=== PATIENT | female | born 1950 | race Caucasian/White ===

== ENCOUNTER → 2018-03-24 | Outpatient (CLI) | payer MEDICARE | END | disposition home or self-care (01) | LOC: RAH 11:11 | PROVIDERS: ATTEND Family Medicine | DX: M25.872 Other specified joint disorders, left ankle and foot (principal); M67.472 Ganglion, left ankle and foot; M79.89 Other specified soft tissue disorders | CPT/HCPCS: 76882 ==

== ENCOUNTER → 2019-02-15 | Outpatient (CLI) | payer MEDICARE | END | disposition home or self-care (01) | LOC: RAH 13:26 | PROVIDERS: ATTEND Family Medicine | DX: M51.35 Other intervertebral disc degeneration, thoracolumbar region (principal); I70.0 Atherosclerosis of aorta; M25.552 Pain in left hip; M25.551 Pain in right hip | CPT/HCPCS: 72100; 73522 ==

== ENCOUNTER → 2020-09-11 | Outpatient (CLI) | payer MEDICARE | END | disposition home or self-care (01) | LOC: RAH 09:46 | PROVIDERS: ATTEND Anesthesiology Pain Medicine | DX: M16.0 Bilateral primary osteoarthritis of hip (principal) | CPT/HCPCS: 73522 ==

== ENCOUNTER → 2020-10-23 | Outpatient (CLI) | payer MEDICARE | END | disposition home or self-care (01) | LOC: RAH 10:35 | PROVIDERS: ATTEND Family Medicine | DX: Q25.46 Tortuous aortic arch (principal); S22.42XA Multiple fractures of ribs, left side, initial encounter for closed fracture; M47.816 Spondylosis without myelopathy or radiculopathy, lumbar region; M51.35 Other intervertebral disc degeneration, thoracolumbar region; M51.37 Other intervertebral disc degeneration, lumbosacral region; K44.9 Diaphragmatic hernia without obstruction or gangrene; M85.88 Other specified disorders of bone density and structure, other site; X58.XXXA Exposure to other specified factors, initial encounter; Y93.89 Activity, other specified; Y92.89 Other specified places as the place of occurrence of the external cause; Y99.8 Other external cause status; Z96.612 Presence of left artificial shoulder joint; Z96.698 Presence of other orthopedic joint implants | CPT/HCPCS: 71046; 71100; 72100 ==

== ENCOUNTER 2021-05-11 15:00 | Observation (INO) | payer MEDICARE ==
[~2021-05-11] VITALS: Ht 152.4 cm; Wt 88.6 kg
[2021-05-11 10:38] LABS: APPEARANCE,URINE Clear (CLEAR); BILIRUBIN,URINE Negative (NEGATIVE); COLOR,URINE Yellow (YELLOW); GLUCOSE, URINE (UA) Negative (NEGATIVE); KETONES,URINE Negative (NEGATIVE); LEUKOCYTE ESTERASE ,URINE Negative (NEGATIVE); NITRATE,URINE Negative (NEGATIVE); OCCULT BLOOD,URINE Negative (NEGATIVE); PH,URINE 6.5 (5.0-8.0); PROTEIN,URINE Negative (NEGATIVE)
[2021-05-11 10:51] LABS: BASOPHILS % (AUTO) 0.5 % (0.0-5.0); EOSINOPHILS % (AUTO) 2.3 % (0.0-8.0); HEMATOCRIT 40.8 % (36-48); MEAN CORPUSCULAR HEMOGLOBIN 28.5 pg (27.0-33.0); MEAN CORPUSCULAR HGB CONC 33.1 g/dL (32.0-36.0); MEAN CORPUSCULAR VOLUME 86.3 fL (79-99); MONOCYTES % (AUTO) 9.2 % (3.0-13.0); NEUTROPHILS % (AUTO) 66.8 % (40.0-77.0); PLATELET COUNT (AUTO) 255 K/uL (130-400); RED BLOOD CELL COUNT(AUTO) 4.73 MIL/uL (4.00-5.50); RED CELL DISTRIBUTION WIDTH 14.1 % (11.0-15.5); WHITE BLOOD COUNT (AUTO) 6.4 K/uL (4.8-10.8)
[2021-05-11 10:59] LABS: CREATININE 0.7 mg/dL (0.5-1.5); POTASSIUM 4.4 mmol/L (3.5-5.1)
[2021-05-11 11:34] LABS: PROTHROMBIN TIME 10.9 SEC (9.6-11.6)
[2021-05-12 13:49] VITALS: BP 173/81
[2021-05-12] MEDS ORDERED: ROPI1TAB13 PO (14:43)
[2021-05-12] MEDS ORDERED: IRON1CAP30 PO (14:43)
[2021-05-12] MEDS ORDERED: CA C1TAB74 PO (14:43)
[2021-05-12] MEDS ORDERED: TRAM50TA4 PO (14:43)
[2021-05-12] MEDS ORDERED: PREG100C PO (14:43)
[2021-05-12] MEDS ORDERED: PARO-37 PO (14:43)
[2021-05-12] MEDS ORDERED: VIT1CAPS5 PO (14:43)
[2021-05-12] MEDS ORDERED: CELE-84 PO (14:43)
[2021-05-12] MEDS ORDERED: VITA1CAP85 PO (14:43)
[2021-05-13] VITALS (19 sets, daily range): BP systolic 110–155; BP diastolic 58–81
[2021-05-13] MEDS ORDERED: LACTATED RINGERS 1000ML 1,000 ML IV ONE (09:22)
[2021-05-13] MEDS ORDERED: CEFAZOLIN SODIUM 1 GM VIAL ONE ×2 (09:22→15:46)
[2021-05-13] MEDS ORDERED: MEPERIDINE-PF 25 MG/ML SYG ONE ×3 (15:14→19:44)
[2021-05-13] MEDS ORDERED: TRANEXAMIC ACID 1000MG/10ML ONE ×2 (15:46→18:34)
[2021-05-13] MEDS ORDERED: PROPOFOL 10 MG/ML 20ML VIAL IV ONE (15:56)
[2021-05-13] MEDS ORDERED: LIDOCAINE PF 100MG/5ML (2%) SYRINGE 5ML ONE (15:56)
[2021-05-13] MEDS ORDERED: SUCCINYLCHOLINE CHLORIDE 20 MG/ML 10 ML VIAL ONE (15:56)
[2021-05-13] MEDS ORDERED: MIDAZOLAM HCL 1 MG/ML 2ML VIAL ONE ×2 (15:56→19:51)
[2021-05-13] MEDS ORDERED: FENTANYL CITRATE PF 50 MCG/1 ML 2ML VIAL ONE ×2 (15:57→18:05)
[2021-05-13] MEDS ORDERED: ROCURONIUM 10MG/1ML SYR 10 MG/ML ML ONE (15:57)
[2021-05-13] MEDS ORDERED: ROPIVACAINE 0.5% 5MG/ML 30ML IJ ONE (16:00)
[2021-05-13] MEDS ORDERED: DEXAMETHASONE SOD PHOSPHATE 10MG/ML 1ML VIAL ONE (16:05)
[2021-05-13] MEDS ORDERED: GLYCOPYRROLATE 1 MG/5 ML SYRINGE ONE (16:16)
[2021-05-13] MEDS ORDERED: CEFAZOLIN SODIUM 2 GM VIAL IV ONE (16:30)
[2021-05-13] MEDS ORDERED: HYDRALAZINE 20MG/ML VIAL ONE (17:09)
[2021-05-13] MEDS ORDERED: DiphenhydrAMINE HCL 50 MG/ML VIAL IVP PRN (18:30)
[2021-05-13] MEDS ORDERED: KCL 20 MEQ ERTAB PO PRN (18:30)
[2021-05-13] MEDS ORDERED: FERROUS FUMARATE 324 MG TABLET PO PRN (18:30)
[2021-05-13] MEDS ORDERED: POTASSIUM CHLORIDE 20MEQ/100ML 100 ML IV PRN (18:30)
[2021-05-13] MEDS ORDERED: ONDANSETRON 4MG INJ IVP PRN (18:30)
[2021-05-13] MEDS ORDERED: LIDOCAINE HCL-MPF 1% 2ML VIAL IV PRN (18:30)
[2021-05-13] MEDS ORDERED: TRAMADOL HCL 50 MG TABLET PO PRN (18:30)
[2021-05-13] MEDS ORDERED: OXYCODONE HCL 5 MG TAB PO PRN (18:30)
[2021-05-13] MEDS ORDERED: KETOROLAC 15MG/ML VIAL (15MG/ML) IV PRN (18:30)
[2021-05-13] MEDS ORDERED: POTASSIUM CHLORIDE 10% ELIXIR 20 MEQ/15 ML UDCUP PO PRN (18:30)
[2021-05-13] MEDS ORDERED: TEMAZEPAM 15 MG CAPSULE PO PRN (18:30)
[2021-05-13] MEDS ORDERED: CALCIUM CARB 500MG PO PRN (18:30)
[2021-05-13] MEDS ORDERED: EPHEDRINE SULFATE 50 MG/ML AMPULE ONE (18:37)
[2021-05-13] MEDS: ASPIRIN 81 MG EC TAB PO SCH (20:47)
[2021-05-13] MEDS: CELECOXIB 200 MG CAP PO SCH (20:47)
[2021-05-13] MEDS: FAMOTIDINE 20MG TAB PO SCH (20:48)
[2021-05-13] MEDS: ACETAMINOPHEN 500 MG TABLET PO SCH (20:48)
[2021-05-13] MEDS: 0.9%NACL 1000ML 1,000 ML IV SCH (20:55)
[2021-05-13] MEDS: OXYCODONE HCL 5 MG TAB PO PRN (21:36)
[2021-05-13] MEDS ORDERED: HYDROMORPHONE PCA 10 MG/50 ML 50 ML IV ONE (21:42)
[2021-05-13] MEDS: ROPINIROLE HCL 1 MG TABLET PO SCH (21:51)
[2021-05-13] MEDS: PREGABALIN 100 MG CAPSULE PO SCH (21:51)
[2021-05-13] MEDS ORDERED: HYDROMORPHONE PCA 10 MG/50 ML 50 ML IV PRN (22:00)
[2021-05-13] MEDS: CEFAZOLIN SODIUM 1 GM VIAL IVP SCH (23:40)
[2021-05-14] VITALS (8 sets, daily range): BP systolic 98–134; BP diastolic 36–67
[2021-05-14 03:44] LABS: HEMATOCRIT 37.4 % (36-48); MEAN CORPUSCULAR HEMOGLOBIN 28.3 pg (27.0-33.0); MEAN CORPUSCULAR HGB CONC 31.8 g/dL (32.0-36.0); RED BLOOD CELL COUNT(AUTO) 4.2 MIL/uL (4.00-5.50); RED CELL DISTRIBUTION WIDTH 14.2 % (11.0-15.5); WHITE BLOOD COUNT (AUTO) 8.9 K/uL (4.8-10.8)
[2021-05-14 04:26] LABS: CREATININE 0.6 mg/dL (0.5-1.5); POTASSIUM 3.8 mmol/L (3.5-5.1)
[2021-05-14] MEDS: ACETAMINOPHEN 500 MG TABLET PO SCH ×3 (04:28→18:20)
[2021-05-14] MEDS: 0.9%NACL 1000ML 1,000 ML IV SCH (04:30)
[2021-05-14] MEDS: CEFAZOLIN SODIUM 1 GM VIAL IVP SCH (06:28)
[2021-05-14] MEDS: [UNRECOGNIZED DRUG - OTHER] PO SCH (09:00)
[2021-05-14] MEDS: IRON FUM PO SCH (09:00)
[2021-05-14] MEDS: (Vit A/Vit C/Vit E/Zinc/Copper (Preservision Areds Softgel PO SCH (09:00)
[2021-05-14] MEDS: VIT C PO SCH (09:00)
[2021-05-14] MEDS: PS CMP PO SCH (09:00)
[2021-05-14] MEDS: ROPINIROLE HCL 1 MG TABLET PO SCH ×4 (09:02→20:14)
[2021-05-14] MEDS: PREGABALIN 100 MG CAPSULE PO SCH ×2 (09:02→20:14)
[2021-05-14] MEDS: VITAMIN B COMPLEX 1 CAPSULE PO SCH (09:02)
[2021-05-14] MEDS: ASPIRIN 81 MG EC TAB PO SCH ×2 (09:02→20:14)
[2021-05-14] MEDS: POLYETHYLENE GLYCOL 3350 17 GM POWD.PACK PO SCH (09:02)
[2021-05-14] MEDS: FAMOTIDINE 20MG TAB PO SCH ×2 (09:02→20:14)
[2021-05-14] MEDS: PAROXETINE HCL 20 MG TABLET PO SCH (09:02)
[2021-05-14] MEDS: CELECOXIB 200 MG CAP PO SCH ×2 (09:03→20:14)
[2021-05-14] MEDS: OXYCODONE HCL 5 MG TAB PO PRN ×2 (16:52→20:15)
[2021-05-15] VITALS (7 sets, daily range): BP systolic 100–179; BP diastolic 30–80
[2021-05-15] MEDS: ACETAMINOPHEN 500 MG TABLET PO SCH ×2 (00:03→11:01)
[2021-05-15] MEDS: ROPINIROLE HCL 1 MG TABLET PO SCH ×2 (03:21→11:27)
[2021-05-15] MEDS: OXYCODONE HCL 5 MG TAB PO PRN ×2 (03:23→14:33)
[2021-05-15] MEDS: VITAMIN B COMPLEX 1 CAPSULE PO SCH (08:05)
[2021-05-15] MEDS: PREGABALIN 100 MG CAPSULE PO SCH (08:05)
[2021-05-15] MEDS: ASPIRIN 81 MG EC TAB PO SCH (08:05)
[2021-05-15] MEDS: FAMOTIDINE 20MG TAB PO SCH (08:05)
[2021-05-15] MEDS: PAROXETINE HCL 20 MG TABLET PO SCH (08:05)
[2021-05-15] MEDS: CELECOXIB 200 MG CAP PO SCH (08:05)
[2021-05-15] MEDS: POLYETHYLENE GLYCOL 3350 17 GM POWD.PACK PO SCH (08:07)
[2021-05-15] MEDS: PS CMP PO SCH (08:08)
[2021-05-15] MEDS: VIT C PO SCH (08:08)
[2021-05-15] MEDS: (Vit A/Vit C/Vit E/Zinc/Copper (Preservision Areds Softgel PO SCH (08:08)
[2021-05-15] MEDS: IRON FUM PO SCH (08:08)
[2021-05-15] MEDS: [UNRECOGNIZED DRUG - OTHER] PO SCH (08:08)
[2021-05-15] MEDS ORDERED: HYDR-4060 PO (13:34)
[2021-05-15] MEDS ORDERED: AEC81 PO (13:34)
[2021-05-16] MEDS ORDERED: BISACODYL 10 MG SUPP.RECT RC PRN (18:30)
== END 2021-05-15 15:00 | disposition home or self-care (01) ==
LOC: DAHIP 05-13 08:48 → 4AH 05-13 20:34
PROVIDERS: ADMIT Orthopaedic Surgery; ATTEND Orthopaedic Surgery
DX: M17.11 Unilateral primary osteoarthritis, right knee (principal); Z20.822 Contact with and (suspected) exposure to COVID-19; G89.29 Other chronic pain; M25.561 Pain in right knee; F17.200 Nicotine dependence, unspecified, uncomplicated; Z85.828 Personal history of other malignant neoplasm of skin; Z90.710 Acquired absence of both cervix and uterus; Z96.612 Presence of left artificial shoulder joint; Z96.652 Presence of left artificial knee joint; Z79.899 Other long term (current) drug therapy; Z98.890 Other specified postprocedural states
CPT/HCPCS: 27447; 36415 ×2; 80048 ×2; 81003; 85025; 85027; 85610; 87088; 87635; 87641; 93005; 96374; 96375; 96376; 97039 ×3; 97116 ×4; 97161; 97530 ×2; A4215; A4216; A4221; A4222; A4223 ×2; A4649 ×5; A4663; A4930 ×3; A5120; A9272; C1776; G0378 ×47; G0379; J0330; J0360; J0690 ×5; J1100; J1170; J1885; J2001; J2175 ×3; J2250 ×2; J2704; J2795; J3010 ×2; J3490 ×4; J7030; J7120 ×2

== ENCOUNTER → 2022-03-05 | Outpatient (CLI) | payer MEDICARE ==
[~2022-03-05] MED LIST: AEC81 PO; CA C1TAB74 PO; CELE-84 PO; HYDR-4060 PO; IRON1CAP30 PO; PARO-37 PO; PREG100C PO; ROPI1TAB13 PO; VIT1CAPS5 PO; VITA1CAP85 PO
== END | disposition home or self-care (01) ==
LOC: RAH 10:00
PROVIDERS: ATTEND Family Medicine
DX: Z12.31 Encounter for screening mammogram for malignant neoplasm of breast (principal)
CPT/HCPCS: 77067

== ENCOUNTER → 2022-03-18 | Outpatient (CLI) | payer MEDICARE | END | disposition home or self-care (01) | LOC: RAH 10:00 | PROVIDERS: ATTEND Family Medicine | DX: Z01.818 Encounter for other preprocedural examination (principal) | CPT/HCPCS: 71046 ==

== ENCOUNTER 2022-03-26 16:00 | Observation (INO) | payer MEDICARE ==
[~2022-03-26] VITALS: Ht 149.9 cm; Wt 86.1 kg
[2022-03-26 11:50] LABS: INR 0.99 (0.85-1.15); PROTHROMBIN TIME 10.8 SEC (9.6-11.6)
[2022-03-26 11:51] LABS: ALBUMIN 3.7 g/dL (3.5-5.0); CARBON DIOXIDE 33 mmol/L (21-32); CHLORIDE 104 mmol/L (101-111); CREATININE 0.6 mg/dL (0.5-1.5); GLOMERULAR FILTR. RATE CALC 105 mL/min (>60); GLUCOSE,RANDOM 92 mg/dL (70-105); POTASSIUM 4.8 mmol/L (3.5-5.1); SODIUM SERUM 140 mmol/L (136-145); UREA NITROGEN, BLOOD 10 mg/dL (7-18)
[2022-03-26 11:52] LABS: PARTIAL THROMBOPLASTIN TIME 30.2 SEC (26.3-35.5)
[2022-03-26 11:56] LABS: CRP QUANTITATIVE < 2.00 mg/L (0.00-9.0)
[2022-03-26 12:59] VITALS: BP 137/69
[2022-03-26 13:12] LABS: APPEARANCE,URINE CLEAR (CLEAR); BILIRUBIN,URINE NEGATIVE (NEGATIVE); COLOR,URINE YELLOW (YELLOW); GLUCOSE, URINE (UA) NEGATIVE (NEGATIVE); KETONES,URINE NEGATIVE (NEGATIVE); LEUKOCYTE ESTERASE ,URINE NEGATIVE Leu/uL (NEGATIVE); NITRATE,URINE NEGATIVE (NEGATIVE); OCCULT BLOOD,URINE NEGATIVE (NEGATIVE); PROTEIN,URINE NEGATIVE (NEGATIVE); UROBILINOGEN,URINE 0.2 mg/dL (0.2-1.0)
[~2022-03-26 16:00] MED LIST changes: -AEC81 PO; -CA C1TAB74 PO; +CHOL100046 PO; +GABA-529 PO; -HYDR-4060 PO; -IRON1CAP30 PO; +MULT-1367 PO
[2022-03-29] VITALS (25 sets, daily range): BP systolic 10–152; BP diastolic 55–79
[2022-03-29] MEDS ORDERED: ROPIVACAINE 0.5% 5MG/ML 30ML IJ ONE ×2 (04:52→06:57)
[2022-03-29] MEDS: CEFAZOLIN SODIUM 1 GM VIAL IVPB SCH ×2 (05:00→07:20)
[2022-03-29] MEDS ORDERED: TRANEXAMIC ACID 1000MG/10ML ONE (05:08)
[2022-03-29] MEDS ORDERED: LACTATED RINGERS 1000ML 1,000 ML IV ONE (06:27)
[2022-03-29] MEDS ORDERED: PHENYLEPHRINE HCL 10 MG/ML 1ML VIAL IV ONE (06:54)
[2022-03-29] MEDS ORDERED: LIDOCAINE PF 100MG/5ML (2%) SYRINGE 5ML ONE (06:57)
[2022-03-29] MEDS ORDERED: PROPOFOL 10 MG/ML 20ML VIAL IV ONE (06:57)
[2022-03-29] MEDS ORDERED: FENTANYL CITRATE PF 50 MCG/1 ML 2ML VIAL ONE ×2 (06:58→08:32)
[2022-03-29] MEDS ORDERED: NEOSTIGMINE 5MG/5ML SYR IV ONE (06:58)
[2022-03-29] MEDS ORDERED: GLYCOPYRROLATE 1 MG/5 ML SYRINGE ONE (06:58)
[2022-03-29] MEDS ORDERED: ROCURONIUM 10MG/1ML SYR 10 MG/ML ML ONE ×2 (07:00→08:49)
[2022-03-29] MEDS ORDERED: ONDANSETRON 4MG INJ ONE (09:34)
[2022-03-29] MEDS ORDERED: POTASSIUM CHLORIDE 10% ELIXIR 20 MEQ/15 ML UDCUP PO PRN (10:00)
[2022-03-29] MEDS ORDERED: ONDANSETRON 4MG INJ IVP PRN (10:00)
[2022-03-29] MEDS ORDERED: MEPERIDINE-PF 25 MG/ML SYG ONE ×3 (10:00→10:33)
[2022-03-29] MEDS ORDERED: POTASSIUM CHLORIDE 20MEQ/100ML 100 ML IV PRN (10:00)
[2022-03-29] MEDS ORDERED: LIDOCAINE HCL-MPF 1% 2ML VIAL IV PRN (10:00)
[2022-03-29] MEDS ORDERED: CALCIUM CARB 500MG PO PRN (10:00)
[2022-03-29] MEDS: 0.9%NACL 1000ML 1,000 ML IV SCH ×2 (10:00→19:42)
[2022-03-29] MEDS ORDERED: CYCLOBENZAPRINE HCL 10 MG TABLET PO PRN (10:00)
[2022-03-29] MEDS ORDERED: TRAMADOL HCL 50 MG TABLET PO PRN (10:00)
[2022-03-29] MEDS ORDERED: KCL 20 MEQ ERTAB PO PRN (10:00)
[2022-03-29] MEDS ORDERED: FERROUS FUMARATE 324 MG TABLET PO PRN (10:00)
[2022-03-29] MEDS ORDERED: IPRATROPIUM/ALBUTEROL SULFATE 3 ML SOLUTION IH ONE ×2 (10:20→10:30)
[2022-03-29] MEDS: KETOROLAC 15MG/ML VIAL (15MG/ML) IV SCH ×2 (10:21→17:11)
[2022-03-29] MEDS: KETOROLAC 15MG/ML VIAL (15MG/ML) IV PRN (12:41)
[2022-03-29] MEDS: GABAPENTIN 300 MG CAPSULE PO SCH ×2 (13:18→19:52)
[2022-03-29] MEDS: HYDROCODONE/ACETAMINOPHEN 5/325 MG TAB PO PRN ×2 (13:36→21:41)
[2022-03-29] MEDS: CEFAZOLIN SODIUM 1 GM VIAL IVP SCH ×2 (15:08→23:02)
[2022-03-29] MEDS: ROPINIROLE HCL 1 MG TABLET PO PRN ×2 (16:17→19:52)
[2022-03-29] MEDS: PREGABALIN 100 MG CAPSULE PO SCH (19:51)
[2022-03-29] MEDS: DOCUSATE SODIUM 100 MG CAP PO SCH (19:51)
[2022-03-30] MEDS: KETOROLAC 15MG/ML VIAL (15MG/ML) IV SCH (00:53)
[2022-03-30 04:07] LABS: HEMATOCRIT 33.5 % (36-48); MEAN CORPUSCULAR HEMOGLOBIN 28.9 pg (27.0-33.0); MEAN CORPUSCULAR HGB CONC 31.9 g/dL (32.0-36.0); MEAN CORPUSCULAR VOLUME 90.5 fL (79-99); RED BLOOD CELL COUNT(AUTO) 3.7 MIL/uL (4.00-5.50); RED CELL DISTRIBUTION WIDTH 12.7 % (11.0-15.5); WHITE BLOOD COUNT (AUTO) 7.4 K/uL (4.8-10.8)
[2022-03-30 04:21] VITALS: BP 99/51
[2022-03-30 04:28] LABS: CREATININE 0.6 mg/dL (0.5-1.5)
[2022-03-30] MEDS: 0.9%NACL 1000ML 1,000 ML IV SCH (05:07)
[2022-03-30] MEDS: HYDROCODONE/ACETAMINOPHEN 5/325 MG TAB PO PRN ×2 (05:34→08:06)
[2022-03-30 07:30] VITALS: BP 107/58
[2022-03-30] MEDS: GABAPENTIN 300 MG CAPSULE PO SCH (08:05)
[2022-03-30] MEDS: PREGABALIN 100 MG CAPSULE PO SCH (08:07)
[2022-03-30] MEDS: DOCUSATE SODIUM 100 MG CAP PO SCH (08:07)
[2022-03-30] MEDS ORDERED: MULTIVITAMIN TABLET PO SCH (09:00)
[2022-03-30] MEDS ORDERED: VIT E PO SCH (09:00)
[2022-03-30] MEDS ORDERED: COPPER PO SCH (09:00)
[2022-03-30] MEDS ORDERED: POLYETHYLENE GLYCOL 3350 17 GM POWD.PACK PO SCH (09:00)
[2022-03-30] MEDS ORDERED: ASPIRIN 325MG TAB PO SCH (09:00)
[2022-03-30] MEDS ORDERED: ZINC PO SCH (09:00)
[2022-03-30] MEDS ORDERED: VIT C PO SCH (09:00)
[2022-03-30] MEDS ORDERED: CELECOXIB 200 MG CAP PO SCH (09:00)
[2022-03-30] MEDS ORDERED: PAROXETINE HCL 20 MG TABLET PO SCH (09:00)
[2022-03-30] MEDS ORDERED: VITAMIN B COMPLEX 1 CAPSULE PO SCH (09:00)
[2022-03-30] MEDS ORDERED: VIT A PO SCH (09:00)
[2022-03-30] MEDS ORDERED: **HM**(Cholecalciferol (Vitamin D3) (Vitamin D3) 25 MCG PO SCH (09:00)
[2022-03-30 11:00] VITALS: BP 110/62
[2022-03-30] MEDS: KETOROLAC 15MG/ML VIAL (15MG/ML) IV PRN (14:10)
[2022-03-30] MEDS ORDERED: HYDR-4060 PO (15:36)
[2022-03-30] MEDS ORDERED: DOCU-116 PO (15:36)
[2022-03-30] MEDS ORDERED: CYCL-309 PO (15:36)
[2022-03-30] MEDS ORDERED: ASPI-1026 PO (15:36)
[2022-03-30 16:00] VITALS: BP 112/65
[2022-04-01] MEDS ORDERED: BISACODYL 10 MG SUPP.RECT RC PRN (10:00)
== END 2022-03-30 17:45 | disposition home or self-care (01) ==
LOC: EDSTATUS 16:00 → DAHIP 03-29 05:54 → 4DH 03-29 10:54
PROVIDERS: ADMIT Student in an Organized Health Care Education/Training Program; ATTEND Student in an Organized Health Care Education/Training Program
DX: M16.11 Unilateral primary osteoarthritis, right hip (principal); Z20.822 Contact with and (suspected) exposure to COVID-19; M25.551 Pain in right hip; D62 Acute posthemorrhagic anemia; Z85.828 Personal history of other malignant neoplasm of skin; Z79.899 Other long term (current) drug therapy
CPT/HCPCS: 82040; 80048 ×2; 85610; 85730; 84134; 86140; 87426; 81003; 36415 ×2; 71045; 93005; 87641; 27130; 97039 ×4; 96374; 96376 ×2; 96375; 76942; 64450; 73502; 73503; 97161; 94640; 85027; 97116 ×2; 97530 ×2; G0378 ×29; G0379; A4663; C1776; J7120; J3010 ×2; J0690 ×3; J3490 ×2; J2710; J2001; J2704; J2405 ×2; J2175 ×3; J2795 ×2; J1885 ×5; J2370; A4649 ×3; G0168; A6255; A5120; A4215; A4223; A4222; A4221

== ENCOUNTER → 2023-02-19 | Outpatient (CLI) | payer MEDICARE ==
[~2023-02-19] MED LIST changes: +ASPI-1026 PO; -CELE-84 PO; +CYCL-309 PO; +DOCU-116 PO; +HYDR-4060 PO; -ROPI1TAB13 PO; +ROPI1TAB46 PO
== END | disposition home or self-care (01) ==
LOC: SHCH 08:44
PROVIDERS: ATTEND Internal Medicine Cardiovascular Disease
DX: R01.1 Cardiac murmur, unspecified (principal)
CPT/HCPCS: 93306

== ENCOUNTER → 2023-03-21 | Outpatient (CLI) | payer MEDICARE | END | disposition home or self-care (01) | LOC: SHCH 09:01 | PROVIDERS: ATTEND Internal Medicine | DX: Z13.6 Encounter for screening for cardiovascular disorders (principal) | CPT/HCPCS: 93978 ==

== ENCOUNTER → 2023-06-17 | Outpatient (CLI) | payer MEDICARE | END | disposition home or self-care (01) | LOC: RAH 08:04 | PROVIDERS: ATTEND Internal Medicine | DX: N63.20 Unspecified lump in the left breast, unspecified quadrant (principal); N64.4 Mastodynia; R92.333 Mammographic heterogeneous density, bilateral breasts | CPT/HCPCS: 76641; 77066 ==